=== PATIENT | male | born 1990 | race Two or more races ===

== ENCOUNTER 2019-01-10 20:33 | Emergency (ER) | payer OTHER ==
[~2019-01-10] VITALS: Ht 195.6 cm; Wt 83.9 kg
[2019-01-10 20:58] VITALS: BP 124/69
== END 2019-01-10 21:44 | disposition home or self-care (01) ==
LOC: ER 20:33
DX: S01.01XA Laceration without foreign body of scalp, initial encounter (principal); S09.8XXA Other specified injuries of head, initial encounter; Z98.890 Other specified postprocedural states; W22.8XXA Striking against or struck by other objects, initial encounter; Y93.89 Activity, other specified; Y92.89 Other specified places as the place of occurrence of the external cause; Y99.8 Other external cause status
CPT/HCPCS: 99282; A6402